=== PATIENT | female | born 1930 | race Caucasian/White ===

== ENCOUNTER → 2016-12-01 | Outpatient (CLI) | payer MEDICARE, OTHER ==
[2015-11-25 09:51] VITALS: BP 146/67
[~2016-12-01] MED LIST: AMLO5TAB2 PO; ASPI-630 PO; CALC-98 PO; PYRI50TA4 PO
--- NOTE | 2016-12-01 12:41 | KCIC ---
Bilateral digital screening mammograms: Reason for examination: Routine screening. Comparison is made to previous studies dated 11/02/2015 and 10/20/2014. The skin and nipples show no abnormalities. No abnormal axillary lymph nodes are seen. The breast parenchyma shows scattered fibroglandular density. (Breast density: Category B.) There are no dominant masses, suspicious calcifications or architectural distortions. Impression: No evidence of malignancy. Recommend routine screening. BI-RADS Category 1: Negative. "Our facility is accredited by the [employer] Mammography Program." This patient's information has been entered into a reminder system for the patient to be notified with the results of her examination and a target date for the next mammogram. Electronically signed by: Amanda Youngblood MD (12/01/2016 12:37 PM) [id number]
== END | disposition home or self-care (01) ==
LOC: KCIC MAMMO 09:50
PROVIDERS: ATTEND Internal Medicine
DX: Z12.31 Encounter for screening mammogram for malignant neoplasm of breast (principal)
CPT/HCPCS: G0202; 77067

== ENCOUNTER 2017-01-09 12:39 | Emergency (ER) | payer MEDICARE, OTHER ==
[~2017-01-09] VITALS: Ht 152.4 cm; Wt 45.4 kg
[2017-01-09 13:05] VITALS: BP 146/67
--- NOTE | 2017-01-09 14:24 | PHYS DOC ---
Past Medical History Past Medical History: Hypertension, Other Additional Past Medical Histor: celiac disease Past Surgical History: Hysterectomy, Tonsillectomy Additional Past Surgical Histo: benign tumors removed. Alcohol Use: Rarely Drug Use: None Adult General Chief Complaint Chief Complaint: RIB PAIN [facility] HPI 86-year-old female ambulatory and functional lives alone and drives as well now presents to the emergency department complaining of left-sided rib pain. 2 nights ago patient leaned over and lost her balance striking her left ribs on the padded armrest of her couch. Left ribs soreness has persisted since that time. It hurts to cough or move but she is been able to function with her activities of daily living as well as groom herself and feeding herself normally. Because of persistent discomfort patient drove herself to the emergency department today. Denies shortness of breath. No exertional chest pain. No productive cough or fever. No chills sweats or Reiger's. Patient did not hit her head or hurt her neck and is otherwise asymptomatic. She also denies left upper quadrant abdominal pain. No anticoagulants. No bone or bleeding problems. Review of Systems Review of Systems Constitutional: Denies fever or chills [] Eyes: Denies change in visual acuity, redness, or eye pain [] HENT: Denies nasal congestion or sore throat [] Respiratory: Denies cough or shortness of breath [] Cardiovascular: No additional information not addressed in HPI [] GI: Denies abdominal pain, nausea, vomiting, bloody stools or diarrhea [] : Denies dysuria or hematuria [] Musculoskeletal: Denies back pain or joint pain [] Integument: Denies rash or skin lesions [] Neurologic: Denies headache, focal weakness or sensory changes [] Endocrine: Denies polyuria or polydipsia [] Allergies Allergies Allergies Coded Allergies Type Severity Reaction Last Updated Verified wheat Adverse Reaction Intermediate pt has celiac disease so allergic to all the glueten foods 11/25/15 No Physical Exam Physical Exam Well-appearing 86-year-old female alert cheerful communicative and appropriate. Perfectly groomed and tastefully dressed. No acute distress smiling and comfortable appearing normal smoke atraumatic nontender C-spine with normal painless range of motion clear lungs regular rate and rhythm left lateral chest wall tenderness with palpation. No ecchymosis deformity or crepitus bony crepitus or skin changes. Area of greatest tenderness is in the mid axillary line lateral to the inferior aspect of her breast. No breast pain or swelling. No right upper quadrant left upper quadrant tenderness. No CVA tenderness. Remainder of exam is benign Constitutional: Well developed, well nourished, no acute distress, non-toxic appearance. [] HENT: Normocephalic, atraumatic, bilateral external ears normal, oropharynx moist, no oral exudates, nose normal. [] Eyes: PERRLA, EOMI, conjunctiva normal, no discharge. [] Neck: Normal range of motion, no tenderness, supple, no stridor. [] Cardiovascular:Heart rate regular rhythm, no murmur [] Lungs & Thorax: Bilateral breath sounds clear to auscultation [] Abdomen: Bowel sounds normal, soft, no tenderness, no masses, no pulsatile masses. [] Skin: Warm, dry, no erythema, no rash. [] Back: No tenderness, no CVA tenderness. [] Extremities: No tenderness, no cyanosis, no clubbing, ROM intact, no edema. [] Neurologic: Alert and oriented X 3, normal motor function, normal sensory function, no focal deficits noted. [] Psychologic: Affect normal, judgement normal, mood normal. [] Current Patient Data Vital Signs Vital Signs Date Time Temp Pulse Resp B/P (MAP) Pulse Ox O2 Delivery O2 Flow Rate FiO2 01/09/17 13:05 98.2 97 20 146/67 (93) 96 Room Air 98.2 EKG EKG [] Radiology/Procedures Radiology/Procedures [] Course & Med Decision Making Course & Med Decision Making Pertinent Labs and Imaging studies reviewed. (See chart for details) Signs and symptoms consistent with chest wall injury with rib injury. No subcutaneous air crepitus appreciated no deformity or ecchymosis. Suspect nondisplaced fracture versus chest wall contusion alone. Injury was 2 days ago the patient is out of high risk post injury timeframe for pulmonary contusion. Normal respiratory rate and pulse ox clear lungs. X-rays pending to rule out displaced fracture or multiple fractures which could require admission for surveillance. If results are unremarkable. Sinus Brommer will be dispensed. Patient agrees with outpatient follow-up and strict return precautions will be given. She takes meloxicam and does not want to take any other NSAIDs in addition to her instead of this medication. Discussed with her at length we'll prescribe Planada she is to use it as needed with a very cautious dose beginning with one half of one pill every 6 hours and if necessary using a full 5 mg Planada every 6 hours. Patient agrees and will follow-up with her doctor tomorrow. Strict return precautions will be given [] Justino Disclaimer Dragon Disclaimer This electronic medical record was generated, in whole or in part, using a voice recognition dictation system. Departure Departure Impression: Primary Impression: Chest wall pain Additional Impression: Rib injury Disposition: HOME, SELF-CARE Condition: STABLE Referrals: RADHA MICHAEL Jr, MD (PCP) Patient Instructions: Incentive Spirometer, Rib Contusion Additional Instructions: You have a contusion to your left chest wall. Apply ice if you feel like this might be helpful. Continue your mode take as previously prescribed and use Planada one half pill every 6 hours as needed for pain. If you find this is not relieving your pain you can take up to 1 pill for 5 mg of hydrocodone every 6 hours as needed. It's important that use the incentive spirometer exactly as discussed, every hour while awake until your pain is resolved. Follow-up with your doctor tomorrow and return immediately for new severe worsening symptoms specifically for worsening cough or suspicion of pulmonary infection. Scripts Hydrocodone/Apap 5-325 (NORCO 5-325 TABLET) 1 Each Tablet 1 TAB PO PRN Q6HRS Y for PAIN, #16 TAB 0 Refills Prov: ZANA ORO MD 01/09/17 Problem Qualifiers ZANA ORO MD Jan 09, 2017 14:24
--- NOTE | 2017-01-09 14:40 | RAD ---
Exam performed: Single view chest and[ left] rib series. History: [Injury to the left chest status post fall Date of service:[ 01/09/17] . Comparison: [Single view chest from 02/03/12]. Findings: AP and oblique radiographs of [ left] ribs reveal the osseous structures to be well aligned and apparently intact. Evidence of fracture is absent. There is no pleural effusion or pneumothorax. As visualized, the underlying pulmonary anatomy appears unremarkable. Emphysematous lungs. Impression: No definite fracture seen.
[2017-01-09] MEDS ORDERED: HYDR-971 PO ×2 (14:54→14:56)
== END 2017-01-09 15:14 | disposition home or self-care (01) ==
LOC: ER 12:39
DX: S29.9XXA Unspecified injury of thorax, initial encounter (principal); I10 Essential (primary) hypertension; K90.0 Celiac disease; Z91.018 Allergy to other foods; W01.190A Fall on same level from slipping, tripping and stumbling with subsequent striking against furniture, initial encounter; Y93.89 Activity, other specified; Y99.8 Other external cause status; Y92.89 Other specified places as the place of occurrence of the external cause
CPT/HCPCS: 71101; 99284; G0238

== ENCOUNTER 2017-10-24 17:13 | Emergency (ER) | payer MEDICARE, OTHER ==
[2017-10-24] MEDS: LIDOCAINE 1% Multi-Dose 20 ML VIAL. INJ (17:45)
[2017-10-24] MEDS: BUPIVACAINE 0.5% 50 ML VIAL. IJ (17:45)
[2017-10-24] MEDS: DIPHTH,PERTUSS(ACELL),TET TOX 0.5 ML DISP.SYRIN. VAX IM (17:56)
== END 2017-10-24 20:19 | disposition home or self-care (01) ==
LOC: ER 20:19
DX: S61.213A Laceration without foreign body of left middle finger without damage to nail, initial encounter (principal); I10 Essential (primary) hypertension; Z91.018 Allergy to other foods; Y28.8XXA Contact with other sharp object, undetermined intent, initial encounter; Y93.89 Activity, other specified; Y99.8 Other external cause status; Y92.89 Other specified places as the place of occurrence of the external cause
CPT/HCPCS: 12002; 73140; 90471; 90715; 99284-25; J3490